=== PATIENT | male | born 1960 | race Caucasian/White ===

== ENCOUNTER → 2018-05-01 16:18 | Outpatient (CLI) | payer OTHER, SELFPAY ==
--- NOTE | 2018-05-01 16:24 | DI.RAD.S_ITS ---
PROCEDURE: XR KNEE LT 3V INDICATIONS: LT KNEE PAIN no truama TECHNIQUE: 3 views of the knee were acquired. COMPARISON: None. FINDINGS: Bones: No fractures or dislocations. No suspicious bony lesions. Mild tricompartmental knee joint narrowing with periarticular osteophyte formation. Soft tissues: Moderate joint effusion. No suspicious soft tissue calcifications. IMPRESSION: Mild knee joint degeneration and moderate effusion. Dictated by: Reilly Arguello [facility] Interpreted: Malu Oliveros MD on 05/01/2018 at 16:46 Approved by: Malu Oliveros M.D. on 05/01/2018 at 17:11
== END ==
PROVIDERS: Visit Provider Family Medicine
DX: M17.12 Unilateral primary osteoarthritis, left knee (principal); M25.462 Effusion, left knee; M25.562 Pain in left knee
CPT/HCPCS: 73562

== ENCOUNTER 2019-10-26 11:49 | Day surgery (SDC) | payer OTHER, SELFPAY ==
--- NOTE | 2019-10-26 07:03 | PM.HP.1 ---
History of Present Illness History of Present Illness Date Patient Seen: 10/26/19 Chief complaint: [id number] SCREENING COLONOSCOPY Narrative: 59 Years Old Male comes in today for consideration of a screening colonoscopy. Last colonoscopy on 08/10/2010, hyperplastic polyp x 4 at 15 cm. There have been no lower GI symptoms suggesting disease such as change in bowel habits, bleeding, abdominal pain or anemia. There's been no family history of colon cancer or colon polyps. Overall health issues have been stable, including no major cardiac events for at least 6 weeks. Current Medications (verified): 1) Valtrex 500 Mg Oral Tablet (Valacyclovir Hcl) .... 1 by mouth bid 2) Etodolac 400 Mg Oral Tablet (Etodolac) .... Take one capsule by mouth twice daily with food, for joint pain. Allergies (verified): No Known Drug Allergies Past History Reviewed: Past medical, surgical, family and social histories (including risk factors) reviewed and attested, and no changes required Past Medical History: BACK PAIN (ICD-724.5) (ELS48-Z96.9) PAIN, HIP (ICD-719.45) (DFW78-Z92.559) Knee pain, left (ICD-719.46) (VXN55-N65.562) Preop examination (ICD-V72.84) (BYX83-Z21.818) Complete rotator cuff tear or rupture of right shoulder, not specified as traumatic (ICD-727.61) (ULZ10-V16.121) Attention or concentration deficit (ICD-799.51) (WRT72-S65.840) CONTUSION, FINGER, INITIAL ENCOUNTER (ICD-923.3) (EVM41-N94.00xA) MIGRAINE (ICD-346.90) (YZE92-Y76.909) HERPES ZOSTER (ICD-053.9) (YCV60-Z16.9) Past Surgical History: Reviewed history from 07/02/2016 and no changes required: Rotator Cuff Repair Knee Arthroscopy, partial meniscectomy Hand surgery Right shoulder rotator cuff and bicep tear repair, (06/2015) Family History: Father: parkinson's Mother: Siblings: Social History: Reviewed history from 06/25/2014 and no changes required: Marital Status: Single Occupation: [employer] Alcohol drinks/day: <1/day Caffeine use/day: 1-2 Guns in home: no Dental Care w/in 6 mos.: yes Sun Exposure: occasionally Seat Belt Use: yes Year quit smokin Review of Systems Review of Systems Narrative: General: Complains of sweats and snoring; denies fever, chills, loss of appetite, fatigue, weakness, ill feeling, weight change, waking-up tired, fatigued/sleepy during day, and problem getting to or staying asleep. Eyes: Denies blurring, double vision, irritation/itching, redness, discharge, vision loss, eye pain, and light intolerance. ENT: Complains of decreased hearing; denies earache, ear discharge, ringing ears, nasal congestion, nasal discharge, postnasal drip, nosebleeds, sore throat, hoarseness, itching nose/eyes, and sneezing. CV: Denies chest discomfort, palpitations, lightheadedness, passing out, SOB with exertion, SOB lying flat, PND-sudden nocturnal shortness of breath, and ankle edema. Resp: Denies cough, wheeze, SOB at rest, sputum, coughing up blood, and painful breathing. GI: Complains of gas/bloating; denies nausea, vomiting, diarrhea, constipation, change in bowel habits, abdominal pain, dark black stools, blood in stools, indigestion/heartburn, reflux, loss of appetite, swallowing problems, painful swallowing, and jaundice. : Complains of frequency; denies painful urination, blood in urine, nocturia, urgency, hesitancy, incontinence, decreased stream, penis discharge, genital sores, less interested in sex, and erectile dysfunction. MS: Complains of neck pain, lower back pain, joint pain, and joint stiffness; denies upper back pain, joint swelling, muscle cramps, muscle weakness, pain radiating down leg, restless legs, and leg pain with exertion. Derm: Denies rash, itching, dryness, skin lesions, changing lesions, and non-healing sores. Neuro: Denies weakness of a limb, numbness/tingling, seizure, tremor, dizziness, transient blindness, balance problems, frequent falls, frequent headaches, severe headaches, difficulty speaking, difficulty swallowing, clumsiness, confusion, and memory loss. Psych: Denies sadness/hopelessness, feeling overwhelmed, lack of delisa/pleasure, anxiety/excessive worry, excessive sleep, inadequate sleep, change in appetite, poor concentration, suicidal ideation, hallucinations, paranoia, and phobia. Endo: Complains of heat intolerance and excessive thirst; denies cold intolerance, excessive hunger, excessive urination, and unintentional weight change. Heme: Denies abnormal bruising, bleeding problems, bleeding gums, frequent nosebleeds, and enlarged lymph nodes. Allergy: Denies hives, allergic rash, allergy symptoms, seasonal allergies, food intolerance, animal intolerance, and frequent infections. Exam Narrative Exam Narrative: General: Alert and oriented, appearing stated age and in no acute distress. Head: Head normocephalic/atraumatic. Neck: Neck soft and supple, no lymphadenopathy. Lungs: Clear to auscultation bilaterally, no wheezes, rhonchi or rales. Heart: Normal S1 and S2 with regular rate and rhythm, no audible murmurs, rubs or gallops. Abdomen: Soft, non-tender, non-distended, no organomegaly. Possitive bowel sounds. Neurologic: no focal deficits, CN II-XII grossly intact with normal reflexes, coordination, sensation, muscle strength and tone, Psych: Alert and oriented x 3. Assessment & Plan Assessment & Plan narrative: Problem # 1: History of colon polyps Problem # 2: COLON CANCER SCREENING 1. Colonoscopy The nature and character of the procedure as well as anticipated results were discussed. The possibility of not completing the procedure was also discussed. Possible complications including aspiration pneumonia, bleeding, perforation and reaction to medications either for sedation or preparation and missed lesions were discussed. Questions were answered and proceeding to the colonoscopy was elected. Informed consent signed. I sincerely appreciate the referral allowing me to participate in this patient's care. Please contact me with any questions or concerns.
--- NOTE | 2019-10-26 07:05 | PM.OP.ENDO ---
Operative Date/Time/Diagnoses Date of procedure: 10/26/19 Time of procedure: 13:00 Pre-op diagnosis: 1. History of colon polyps 2. Screening for colon cancer Post-op diagnosis: other (1. Normal colonoscopy) Procedure & Clinicians Study performed: Colonoscopy Same procedure as scheduled: Yes Indications: 1. History of colon polyps 2. Screening for colon cancer Surgeon: Edith Brice Procedure Notes SCOAP/Timeout: 13:07 Procedure in detail: ENDOSCOPIST: Edith Brice MD Sedation RN: Quan Hoffman RN Sedation start time: 13:07 Sedation end time:13:26 PROCEDURE: Colonoscopy INDICATIONS: 1. History of colon polyps 2. Screening for colon cancer MEDICATION: Levsin 0.125 mg sublingual, incremental doses of Versed and fentanyl until appropriate level sedation achieved. ASA CLASS: 2 CECAL WITHDRAWAL TIME: 10 minutes COMPLICATIONS: None. EXTENT OF PROCEDURE: Cecum. QUALITY OF PREP: Good with portions of liquid stool. PROCEDURE: Prior to insertion of the colonoscope, a digital rectal examination was accomplished with circumferential palpation of the distal rectal mucosa without significant findings being noted. The high-definition colonoscope was passed into the rectum in the usual fashion and advanced over to the cecum without difficulty. The ileocecal valve, appendiceal stoma, and medial wall all could be inspected and no abnormalities were seen. ASCENDING COLON: As the colonoscope was withdrawn, care was taken to expose and inspect the haustral folds and no abnormalities were seen. HEPATIC FLEXURE: Normal no polyps, diverticula or other abnormalities. TRANSVERSE COLON: Normal no polyps, diverticula or other abnormalities. DESCENDING COLON: Normal no polyps, diverticula or other abnormalities. SIGMOID COLON: Normal no polyps, diverticula or other abnormalities. RECTUM: Normal. J maneuver was produced. There was no significant perianal disease. The J maneuver was broken. The remainder of the rectum was inspected and there was no external hemorrhoid disease. The scope was withdrawn. IMPRESSION: 1. Normal colonoscopy PLAN: 1. Secondary to history of polyps, repeat colonoscopy in 5 years. The possibility of a missed lesion including a malignancy has been discussed with the patient previously. Potential alarm symptoms have been discussed and should be reported immediately. Scope withdrawal time: 10 minutes Sedation minutes: 19 Specimen(s): none sent Complications: none Impression: Normal colonoscopy Post-procedure Recommendations: Colonscopy in 5 years Follow up: as needed Disposition: PACU
[2019-10-26 12:38] VITALS: BP 124/79; PULSE 64; RESP 16; TEMP 36.3; O2SAT 98; BMI 31.0
[2019-10-26] MEDS: SODIUM CHLORIDE 0.9% 1,000 ML 200 ML IV (12:46)
[2019-10-26] MEDS: HYOSCYAMINE 0.125 MG TABLET PO (12:51)
[2019-10-26] MEDS: fentaNYL 250 MCG/5 ML INJ IV (13:28)
[2019-10-26] MEDS: MIDAZOLAM 5 MG/5 ML VIAL IV (13:29)
[2019-10-26 13:30] VITALS: BP 139/86; PULSE 60; RESP 12; TEMP 36.3; O2SAT 94
[2019-10-26 13:35] VITALS: BP 117/80; PULSE 62; RESP 17; TEMP 36.6; O2SAT 94
[2019-10-26 13:40] VITALS: BP 113/84; PULSE 69; RESP 12; O2SAT 96
== END 2019-10-26 14:03 | disposition home or self-care (01) ==
PROVIDERS: Family Provider Family Medicine; PCP Family Medicine; Visit Provider Student in an Organized Health Care Education/Training Program
PROC: 0DJD8ZZ Inspection of Lower Intestinal Tract, Via Natural or Artificial Opening Endoscopic (ICD-10-PCS; CPT 45378; principal; 2019-10-26 13:00)
DX: Z12.11 Encounter for screening for malignant neoplasm of colon (principal); Z86.010 Personal history of colon polyps
CPT/HCPCS: 45378; J2250; J3010

== ENCOUNTER → 2020-12-23 08:07 | Outpatient (CLI) | payer OTHER, SELFPAY ==
[2020-12-23] MEDS: COVID-19 VACC #1, MRNA(MOD) 100 MCG/0.5 ML VIAL IM (08:13)
== END ==
PROVIDERS: Visit Provider Internal Medicine
DX: Z23 Encounter for immunization (principal)
CPT/HCPCS: 0011A; 91301

== ENCOUNTER → 2021-01-21 08:07 | Outpatient (CLI) | payer OTHER, SELFPAY ==
[2021-01-21] MEDS: COVID-19 VACC #2, MRNA(MOD) 100 MCG/0.5 ML VIAL IM (08:14)
== END ==
PROVIDERS: Visit Provider Internal Medicine
DX: Z23 Encounter for immunization (principal)
CPT/HCPCS: 0012A; 91301

== ENCOUNTER → 2022-10-07 05:50 | Outpatient (CLI) | payer OTHER, SELFPAY ==
--- NOTE | 2022-10-07 | DI.RAD.S_ITS ---
PROCEDURE: XR HIP W PEL IF DONE LISET MIN 4V INDICATIONS: Lower Back/lumber spine pain hip pain TECHNIQUE: AP pelvis with lateral view(s) of the bilateral hip(s). COMPARISON: None. FINDINGS: Bones: There is prior right total hip arthroplasty with anatomic right hip alignment. No gross hardware loosening or failure. No fractures or dislocations. Severe left hip joint osteoarthritic changes are seen with near complete loss of superior joint space, subchondral sclerosis and marginal osteophyte formation. No evidence of avascular necrosis of left femoral head. No acute fracture or dislocation. Pelvic ring appears intact. No suspicious bony lesions. Soft tissues: The visualized bowel gas pattern is normal. No suspicious soft tissue calcifications. IMPRESSION: 1. Prior right total hip arthroplasty with anatomic right hip alignment. No fracture or dislocation. No evidence of avascular necrosis. 2. Severe left hip joint osteoarthritis. No left hip fracture or dislocation. No evidence of avascular necrosis. Dictated by: Tripp Bazan M.D. on 10/07/2022 at 12:27 Approved by: Tripp Bazan M.D. on 10/07/2022 at 12:28
--- NOTE | 2022-10-07 | DI.RAD.S_ITS ---
PROCEDURE: XR LUMBAR SPINE 2-3V INDICATIONS: Lower Back/lumber spine pain hip pain TECHNIQUE: 3 views of the lumbar spine were acquired. COMPARISON: None. FINDINGS: Bones: 5 [id number] vertebrae are present. Bilateral pars defects are seen at L5 level with 1.3 cm anterolisthesis of L5 on S1. Loss of disc height and degenerative endplate changes are noted throughout lumbar spine most notably at L5-S1 level. No vertebral body compression fractures. No suspicious bony lesions. There is prior right total hip arthroplasty. Soft tissues: Significant fecal stasis in the colon is seen. No gross free air. No suspicious soft tissue calcifications. IMPRESSION: 1. Bilateral pars defect at L5 level with 1.3 cm anterolisthesis of L5 on S1. No acute compression fracture. Degenerative disc disease throughout lumbar spine. Dictated by: Tripp Bazan M.D. on 10/07/2022 at 12:11 Approved by: Tripp Bazan M.D. on 10/07/2022 at 12:26
== END ==
PROVIDERS: PCP Chiropractor; Referring Provider Chiropractor; Visit Provider Chiropractor
DX: M99.03 Segmental and somatic dysfunction of lumbar region (principal); M99.06 Segmental and somatic dysfunction of lower extremity; M43.16 Spondylolisthesis, lumbar region; M51.36 Other intervertebral disc degeneration, lumbar region; M16.12 Unilateral primary osteoarthritis, left hip; M54.51 Vertebrogenic low back pain; M25.559 Pain in unspecified hip; Z96.641 Presence of right artificial hip joint
CPT/HCPCS: 72100; 73522

== ENCOUNTER → 2023-04-28 13:05 | Outpatient (ROUT) | payer OTHER, SELFPAY ==
[2023-04-28 13:19] LABS: INR 1.1 (0.9-1.3); Prothrombin Time 12.7 SECONDS (10.1-12.7)
== END ==
PROVIDERS: PCP Chiropractor; Visit Provider Family Medicine
DX: Z01.818 Encounter for other preprocedural examination (principal)
CPT/HCPCS: 85610

== ENCOUNTER → 2023-05-11 12:32 | Outpatient (ROUT) | payer OTHER, SELFPAY | PROVIDERS: PCP Chiropractor; Visit Provider Family Medicine | DX: Z01.818 Encounter for other preprocedural examination (principal) | CPT/HCPCS: 87081 ==

== ENCOUNTER → 2023-05-11 16:10 | Outpatient (CLI) | payer OTHER, SELFPAY ==
--- NOTE | 2023-05-11 16:13 | DI.MRI.S_ITS ---
PROCEDURE: MR LUMBAR SPINE WO CON INDICATIONS: Spondylolisthesis, lumbar region TECHNIQUE: Noncontrast sagittal T1 spin echo and T2 fast echo, sagittal STIR, and T2 fast spin echo through the lumbar spine. In cases with scoliosis, additional coronal T2 fast spin echo may be performed. COMPARISON: CR, XR LUMBAR SPINE 2-3V, 10/07/2022, 7:23. FINDINGS: Image quality: Excellent. Alignment and Curvature: There is mild, approximately 8 millimeters of L5-S1 anterolisthesis secondary to bilateral L5 pars interarticularis defects. Bone Marrow: L5-S1 mixed Modic type 2-3 reactive endplate changes.. No acute vertebral body compression fractures. Spinal Cord: Conus medullaris terminates at the L1 level. Visualized cord demonstrates normal signal and size. Paraspinous Soft Tissues: No paravertebral masses. T12-L1: Normal appearance. L1-L2: Normal appearance. L2-L3: Loss of disc signal. Mild, diffuse disc bulge. No central stenosis. Mild bilateral neural foraminal narrowing. No neural compression. L3-L4: Loss of disc signal. Mild, diffuse disc bulge. No central stenosis. Moderate right and mild left neural foraminal narrowing. No neural compression. L4-L5: Loss of disc signal. Mild bilateral facet hypertrophy. No central stenosis. Mild bilateral neural foraminal narrowing. No neural compression. L5-S1: Loss of disc signal and height. Mild, diffuse disc bulge. Mild bilateral facet hypertrophy. No central stenosis. Severe bilateral neural foraminal narrowing with compression of the exiting bilateral L5 nerve roots. IMPRESSION: Grade 1 L5-S1 isthmic spondylolisthesis. Multilevel degenerative disc disease. Multilevel facet arthropathy. No severe central canal narrowing. Severe bilateral L5-S1 neural foraminal narrowing with compression of the exiting bilateral L5 nerve roots. Dictated by: Rebecca Overton MD, PhD on 05/12/2023 at 13:11 Approved by: Rebecca Overton MD, PhD on 05/12/2023 at 13:15
== END ==
PROVIDERS: PCP Chiropractor; Referring Provider Orthopaedic Surgery Orthopaedic Surgery of the Spine; Visit Provider Orthopaedic Surgery Orthopaedic Surgery of the Spine
DX: M47.27 Other spondylosis with radiculopathy, lumbosacral region (principal); M47.26 Other spondylosis with radiculopathy, lumbar region; Z01.818 Encounter for other preprocedural examination; M43.17 Spondylolisthesis, lumbosacral region; M43.16 Spondylolisthesis, lumbar region; M51.16 Intervertebral disc disorders with radiculopathy, lumbar region; M48.07 Spinal stenosis, lumbosacral region
CPT/HCPCS: 72148; 87081

== ENCOUNTER → 2023-12-26 14:34 | Outpatient (CLI) | payer OTHER, SELFPAY ==
--- NOTE | 2023-12-26 14:40 | DI.RAD.S_ITS ---
PROCEDURE: XR LUMBAR SPINE 6V W BENDING INDICATIONS: LUMBAR PAIN TECHNIQUE: 5 views of the lumbar spine acquired, including flexion and extension views. COMPARISON: [facility], CR, XR LUMBAR SPINE 2-3V, 10/07/2022, 7:23. FINDINGS: Bones: 5 nonrib-bearing vertebrae are present. There is 12 mm anterolisthesis of L5 on S1. There is suggestion of bilateral pars defect at L5 level. No vertebral body compression fractures. Degenerative endplate changes are noted throughout lumbar spine most notably at L4-5 and L5-S1 levels. Bilateral facet arthrosis is also seen at these levels. No suspicious bony lesions. Soft tissues: Overlying bowel gas pattern is normal. No suspicious soft tissue calcifications. Flexion/extension: There is decreased range of motion, with abnormal motion at L5-S1 level. IMPRESSION: 1. Degenerative disc throughout lumbar spine most notably at L4-5 and L5-S1 levels. No acute compression fracture. Suggestion of bilateral pars defects at L5 level. 12 mm anterolisthesis of L5 on S1. 2. Decreased range of motion on lateral flexion and extension views with suggestion of abnormal motion at L5-S1 level. Dictated by: Tripp Bazan M.D. on 12/26/2023 at 17:03 Approved by: Tripp Bazan M.D. on 12/26/2023 at 17:05
== END ==
PROVIDERS: PCP Family Medicine; Referring Provider Family Medicine; Visit Provider Family Medicine
DX: M62.830 Muscle spasm of back (principal); M51.36 Other intervertebral disc degeneration, lumbar region; M51.37 Other intervertebral disc degeneration, lumbosacral region; M43.17 Spondylolisthesis, lumbosacral region; M47.816 Spondylosis without myelopathy or radiculopathy, lumbar region; M47.817 Spondylosis without myelopathy or radiculopathy, lumbosacral region
CPT/HCPCS: 72114